=== PATIENT | male | born 1955 | race Caucasian/White ===

== ENCOUNTER → 2020-05-08 | Outpatient (CLI) | payer OTHER ==
[~2020-05-08] MED LIST: METRONIDAZOLE500 MG PO; NEXIUM40 MG PO; TYLENOL WITH C1 EACH PO
== END ==
LOC: RAD 14:06
PROVIDERS: ATTEND Internal Medicine
DX: R05 Cough (principal); F10.21 Alcohol dependence, in remission
CPT/HCPCS: 71046

== ENCOUNTER → 2021-09-01 | Day surgery (SDC) | payer OTHER ==
[2021-08-30 14:21] LABS: BASOPHILS # (AUTO) 0.1 (0.0-0.1); BASOPHILS % 0.8 % (0.0-1.0); EOSINOPHILS # (AUTO) 0.2 (0.0-0.4); HEMATOCRIT 45.5 % (38.2-49.6); HEMOGLOBIN 14.5 g/dL (14.0-18.0); LYMPHOCYTES # (AUTO) 2.8 (1.0-3.2); LYMPHOCYTES % 25.3 % (18.0-39.1); MEAN CORPUSCULAR HEMOGLOBIN 31.6 pg (28-32); MEAN CORPUSCULAR HGB CONC 31.9 g/dL (31-35); MEAN CORPUSCULAR VOLUME 99.1 fL (81-99); MONOCYTES # (AUTO) 1.2 (0.2-0.8); MONOCYTES % 10.9 % (4.4-11.3); NEUTROPHILS # (AUTO) 6.6 (2.1-6.9); NEUTROPHILS % 60.6 % (38.7-80.0); PLATELET COUNT 232 x10e3/uL (140-360); RED BLOOD COUNT 4.59 x10e6/uL (4.3-5.7); RED CELL DISTRIBUTION WIDTH 13.1 % (11.7-14.4)
[~2021-09-01] MED LIST changes: +FENTANYL CITRATE/PF 100MCG/2 ML INJ ONE; +MIDAZOLAM HCL 2 MG/2 ML VIAL ONE; +POVIDONE IODINE 0.05% 0.05 % ML PO ONE; +PROPOFOL IV EMULSION 10 MG/ML 20 ML VIAL ONE; +SIMETHICONE 40 MG/0.6 ML BTL ONE; +VITAMIN B122500 MCG PO; +VITAMIN D PO
[2021-09-01 12:25] VITALS: BP 148/89
== END | disposition home or self-care (01) ==
LOC: OR 08:52
PROVIDERS: ATTEND Internal Medicine Gastroenterology
DX: Z12.11 Encounter for screening for malignant neoplasm of colon (principal); K63.5 Polyp of colon; K29.00 Acute gastritis without bleeding; K44.9 Diaphragmatic hernia without obstruction or gangrene; K21.9 Gastro-esophageal reflux disease without esophagitis; K57.30 Diverticulosis of large intestine without perforation or abscess without bleeding; K64.8 Other hemorrhoids; Z71.3 Dietary counseling and surveillance; E66.3 Overweight; M19.90 Unspecified osteoarthritis, unspecified site; Z88.0 Allergy status to penicillin; Z88.2 Allergy status to sulfonamides; Z01.810 Encounter for preprocedural cardiovascular examination; Z01.812 Encounter for preprocedural laboratory examination; Z20.822 Contact with and (suspected) exposure to COVID-19; Z68.25 Body mass index [BMI] 25.0-25.9, adult; Z80.0 Family history of malignant neoplasm of digestive organs
CPT/HCPCS: 36415; 43239; 45380; 45385; 85025; 88305; 88312; 88342; 93005; J2250; J3010

== ENCOUNTER → 2022-07-26 | Outpatient (CLI) | payer OTHER ==
[~2022-07-26] MED LIST changes: -FENTANYL CITRATE/PF 100MCG/2 ML INJ ONE; -MIDAZOLAM HCL 2 MG/2 ML VIAL ONE; -POVIDONE IODINE 0.05% 0.05 % ML PO ONE; -PROPOFOL IV EMULSION 10 MG/ML 20 ML VIAL ONE; -SIMETHICONE 40 MG/0.6 ML BTL ONE
== END ==
LOC: RAD 15:17
PROVIDERS: ATTEND Internal Medicine
DX: Z01.818 Encounter for other preprocedural examination (principal)
CPT/HCPCS: 71046

== ENCOUNTER → 2024-06-26 | Outpatient (REF) | payer OTHER | LOC: RAD 12:21 | PROVIDERS: ATTEND Internal Medicine | DX: Z01.818 Encounter for other preprocedural examination (principal) | CPT/HCPCS: 71046; 93005 ==

== ENCOUNTER → 2024-09-30 | Outpatient (REF) | payer OTHER | LOC: CT 11:33 | PROVIDERS: ATTEND Internal Medicine | DX: J42 Unspecified chronic bronchitis (principal); F17.211 Nicotine dependence, cigarettes, in remission | CPT/HCPCS: 71250 ==

== ENCOUNTER → 2024-10-17 | Outpatient (REF) | payer OTHER ==
[~2024-10-17] MED LIST changes: +ALBUTEROL SULF 0.083% NEB SOLN 3 ML NEB ONE
== END ==
LOC: RESP 09:47 → EDSTATUS 10:00
PROVIDERS: ATTEND Internal Medicine
DX: J42 Unspecified chronic bronchitis (principal); F17.211 Nicotine dependence, cigarettes, in remission
CPT/HCPCS: 94060

== ENCOUNTER 2025-01-07 10:18 | Inpatient (IN) | payer OTHER ==
[2025-01-03 10:36] LABS: BASOPHILS % 1.6 % (0.0-1.0); EOSINOPHILS % 3.1 % (0.0-6.0); LYMPHOCYTES % 25.0 % (18.0-39.1); MONOCYTES % 10.0 % (4.4-11.3); NEUTROPHILS % 60.0 % (38.7-80.0); RED CELL DISTRIBUTION WIDTH 13.2 % (11.7-14.4)
[2025-01-03 11:10] LABS: EST GLOMERULAR FILTRATION RATE 54.0 ML/MIN (>=60)
[~2025-01-07] VITALS: Ht 188 cm; Wt 89.8 kg
[2025-01-07] VITALS (31 sets, daily range): BP systolic 91–152; BP diastolic 54–86; PULSE 45–78; RESP 10–22; TEMP 97.5; O2SAT 94–100
[~2025-01-07 10:18] MED LIST changes: -ALBUTEROL SULF 0.083% NEB SOLN 3 ML NEB ONE; +AZOR 5-20 MG T1 EACH; +EXFORGE 5-1601 EACH
[2025-01-07] MEDS: ALPRAZOLAM 0.5 MG TAB ONE (11:19)
[2025-01-07] MEDS: DIPHENHYDRAMINE HCL 25 MG CAP PO ONE (11:20)
[2025-01-07] MEDS: SODIUM CHLORIDE 0.9% 1000ML 1,000 ML ONE (11:20)
[2025-01-07] MEDS: NITROGLYCERIN/D5W 200 MCG/ML 250 ML IV SCH (14:15)
[2025-01-07] MEDS ORDERED: Morphine 2mg Syringe 2 MG/ML SYR IV PRN (14:15)
[2025-01-07] MEDS ORDERED: ACETAMINOPHEN 325 MG TAB PO PRN (14:15)
[2025-01-07] MEDS ORDERED: ONDANSETRON HCL INJ 2MG/ML 2ML 2 MG/ML VIAL IV PRN (14:15)
[2025-01-07] MEDS ORDERED: Morphine 4mg INJECTION 4 MG/ML INJ IV PRN (14:15)
[2025-01-07] MEDS: SODIUM CHLORIDE 0.9% 1000ML 1,000 ML IV SCH (15:44)
[2025-01-07] MEDS: CLOPIDOGREL BISULFATE 75 MG TAB PO ONE ×2 (17:21→21:50)
[2025-01-07] MEDS: METOPROLOL SUCCINATE 50 MG TAB XL PO ONE ×2 (17:22→21:50)
[2025-01-07] MEDS ORDERED: ZOLPIDEM TARTRATE 5 MG TAB PO PRN (21:00)
[2025-01-07] MEDS: ATORVASTATIN 20 MG TAB PO SCH (21:44)
[2025-01-07] MEDS: HEPARIN SOD/SOD CHLORIDE 2,000 ML ONE (21:47)
[2025-01-07] MEDS: HEPARIN SOD (PORCINE) 1000 UNIT/ML 30ML ONE (21:47)
[2025-01-07] MEDS: NITROGLYCERIN/D5W 200 MCG/ML 250 ML ONE (21:48)
[2025-01-07] MEDS: VERAPAMIL HCL 2.5 MG/ML 2 ML VIAL ONE (21:49)
[2025-01-07] MEDS: MIDAZOLAM HCL 2 MG/2 ML VIAL ONE (21:49)
[2025-01-07] MEDS: IOPAMIDOL 370 MG/ML 100 ML INFUS..BTL INJ ONE (21:49)
[2025-01-07] MEDS: FENTANYL CITRATE/PF 100MCG/2 ML INJ ONE (21:49)
[2025-01-07] MEDS: LIDOCAINE HCL 2% LOCAL 20 ML VIAL ONE (21:49)
[2025-01-08] VITALS (30 sets, daily range): BP systolic 97–128; BP diastolic 52–78; PULSE 43–62; RESP 11–24; TEMP 97.8; O2SAT 92–100
[2025-01-08 06:39] LABS: BASOPHILS % 1.5 % (0.0-1.0); EOSINOPHILS % 1.8 % (0.0-6.0); LYMPHOCYTES % 18.8 % (18.0-39.1); MONOCYTES % 11.4 % (4.4-11.3); NEUTROPHILS % 66.2 % (38.7-80.0); RED CELL DISTRIBUTION WIDTH 13.5 % (11.7-14.4)
[2025-01-08 07:08] LABS: CHOL/HDL RATIO 3.8 (3.9-4.7); EST GLOMERULAR FILTRATION RATE 72.0 ML/MIN (>=60); LDL CHOLESTEROL 96.0 MG/DL (60-130)
[2025-01-08] MEDS ORDERED: AMLODIPINE BESYLATE 5 MG TAB PO SCH (09:00)
[2025-01-08] MEDS: OLMESARTAN 20 MG TAB PO SCH (09:00)
[2025-01-08] MEDS ORDERED: OLMESARTAN 20 MG TAB PO SCH (09:00)
[2025-01-08] MEDS: AMLODIPINE BESYLATE 5 MG TAB PO SCH (09:00)
[2025-01-08] MEDS: METOPROLOL SUCCINATE 50 MG TAB XL PO SCH (09:00)
[2025-01-08] MEDS: PANTOPRAZOLE SOD 40 MG TABEC PO SCH (09:04)
[2025-01-08] MEDS: CLOPIDOGREL BISULFATE 75 MG TAB PO SCH (09:04)
[2025-01-08] MEDS: ASPIRIN 325 MG TAB PO SCH (09:04)
[2025-01-08] MEDS ORDERED: PLAVIX75 MG PO (09:59)
[2025-01-08] MEDS ORDERED: ASPIRIN81 MG PO (09:59)
[2025-01-08] MEDS ORDERED: ASPIRIN325 MG PO (10:11)
[2025-01-08] MEDS ORDERED: ROSUVASTATIN CA20 MG PO (10:13)
== END 2025-01-08 11:24 | disposition home or self-care (01) | DRG 322 ==
LOC: CATH LAB 10:18 → ICU 14:50
PROVIDERS: ADMIT Internal Medicine; ATTEND Internal Medicine
PROC: 027034Z Dilation of Coronary Artery, One Artery with Drug-eluting Intraluminal Device, Percutaneous Approach (ICD-10-PCS; principal; 2025-01-07)
PROC: 4A023N7 Measurement of Cardiac Sampling and Pressure, Left Heart, Percutaneous Approach (ICD-10-PCS; 2025-01-07)
PROC: B2151ZZ Fluoroscopy of Left Heart using Low Osmolar Contrast (ICD-10-PCS; 2025-01-07)
PROC: B2111ZZ Fluoroscopy of Multiple Coronary Arteries using Low Osmolar Contrast (ICD-10-PCS; 2025-01-07)
DX: I25.119 Atherosclerotic heart disease of native coronary artery with unspecified angina pectoris (principal); I13.10 Hypertensive heart and chronic kidney disease without heart failure, with stage 1 through stage 4 chronic kidney disease, or unspecified chronic kidney disease; N18.30 Chronic kidney disease, stage 3 unspecified; J44.9 Chronic obstructive pulmonary disease, unspecified; J43.9 Emphysema, unspecified; M19.90 Unspecified osteoarthritis, unspecified site; N28.9 Disorder of kidney and ureter, unspecified; R00.1 Bradycardia, unspecified; Z87.891 Personal history of nicotine dependence; Z88.0 Allergy status to penicillin; Z88.2 Allergy status to sulfonamides
CPT/HCPCS: 36415; 76937; 80053; 80061; 85025; 92920; 93005; 93458; 99152; 99153; C1725; C1769; C1887; J1644; J2003; J2250; J2470; J7030; Q9967